=== PATIENT | female | born 1955 | race Caucasian/White ===

== ENCOUNTER 2020-10-01 16:46 | Day surgery (SDCO) | payer OTHER ==
[2020-10-01 17:12] LABS: BASOPHIL 0.9 % (0-2); EOSINOPHIL 2.6 % (0-7); HCT 37.1 % (37.0-47.0); HGB 12.3 g/dl (12.5-16.0); LYMPHOCYTE 16.8 % (15-48); MCH 29.2 pg (25.0-31.0); MCHC 33.2 g/dL (32.0-36.0); MCV 88.1 fL (78.0-100.0); MONOCYTE 8.3 % (0-12); MPV 10.3 fL (6.0-9.5); NEUTROPHIL 71.1 % (41-80); NRBC 0; PLT 363 K/uL (150-400); RBC 4.21 M/uL (4.20-5.40); RDW 13.7 % (11.5-14.0); WBC 14.4 K/uL (4.0-10.5)
[2020-10-01 17:23] LABS: PROTHROMBIN TIME 12.5 SECONDS (11.4-13.6); PTT 31.6 SECONDS (22.2-34.7)
[2020-10-01 17:29] LABS: ALBUMIN 3.8 g/dL (3.4-5.0); BILIRUBIN - TOTAL 0.4 mg/dL (0.2-1.0); BUN/CREAT RATIO (CALC) 18.8 RATIO; CREATININE 1.28 mg/dL (0.51-0.95); GLOBULIN (CALCULATION) 3.5 g/dL; POTASSIUM 3.5 mmol/L (3.5-5.1); TOTAL PROTEIN 7.3 g/dL (6.4-8.2)
--- NOTE | 2020-10-02 04:41 | NUR ---
SIGHT EFFECTS SPECIALIST NOTIFIED OF PT HR IN 110s-120, SIGHT EFFECTS SPECIALIST ORDERED PO DOSE OF LOPRESSOR. WILL CONTINUE TO [place]IOR. PT FREE OF CHEST PAIN OR DISCOMFOT AT THIS TIME
[2020-10-02 05:43] LABS: BASOPHIL 0.8 % (0-2); EOSINOPHIL 4.1 % (0-7); HCT 35.2 % (37.0-47.0); HGB 11.5 g/dl (12.5-16.0); LYMPHOCYTE 30.6 % (15-48); MCH 29.4 pg (25.0-31.0); MCHC 32.7 g/dL (32.0-36.0); MONOCYTE 7.3 % (0-12); NEUTROPHIL 56.9 % (41-80); NRBC 0; PLT 325 K/uL (150-400); RBC 3.91 M/uL (4.20-5.40); RDW 13.7 % (11.5-14.0); WBC 14.3 K/uL (4.0-10.5)
[2020-10-02 06:40] LABS: ALBUMIN 3.4 g/dL (3.4-5.0); BILIRUBIN - TOTAL 0.5 mg/dL (0.2-1.0); BUN/CREAT RATIO (CALC) 19.4 RATIO; CREATININE 1.03 mg/dL (0.51-0.95); GLOBULIN (CALCULATION) 3.7 g/dL; POTASSIUM 3.2 mmol/L (3.5-5.1); TOTAL PROTEIN 7.1 g/dL (6.4-8.2)
[2020-10-02] MEDS ORDERED: CYMBALTA 30MG C30 MG PO (10:00)
[2020-10-02] MEDS ORDERED: DALIRESP500 MCG PO (10:01)
[2020-10-02] MEDS ORDERED: SINGULAIR10 MG PO (10:01)
[2020-10-02] MEDS ORDERED: LISINOPRIL-HCT1 EAC1 PO (10:03)
[2020-10-02] MEDS ORDERED: ZOLOFT50 MG PO (10:03)
[2020-10-02] MEDS ORDERED: DUONEB 2.5-0.5M1 AMP INH (10:04)
[2020-10-02] MEDS ORDERED: VENTOLIN HFA18 GM INH (10:06)
[2020-10-02] MEDS ORDERED: CRESTOR5 MG PO (10:07)
[2020-10-02] MEDS ORDERED: PERFOROMIS20 MCG/2 M INH (10:07)
--- NOTE | 2020-10-02 12:17 | NUR ---
10/02/20 Patient was transferred to [facility].
== END 2020-10-02 10:59 | disposition other institution (70) ==
LOC: FER 16:46 → FTCU 10-02 01:54
PROVIDERS: Emergency Medicine; Nurse Practitioner; ADMIT Internal Medicine
DX: I21.4 Non-ST elevation (NSTEMI) myocardial infarction (principal); J44.9 Chronic obstructive pulmonary disease, unspecified; N18.9 Chronic kidney disease, unspecified; K21.9 Gastro-esophageal reflux disease without esophagitis; M06.9 Rheumatoid arthritis, unspecified; F32.9 Major depressive disorder, single episode, unspecified; J30.2 Other seasonal allergic rhinitis; Z87.891 Personal history of nicotine dependence; Z20.822 Contact with and (suspected) exposure to COVID-19; Z86.018 Personal history of other benign neoplasm
CPT/HCPCS: 36415; 71045; 80053; 80061; 83970; 84439; 84443; 84484; 85025; 85379; 85610; 85730; 93005; G0378; J1644; U0002